=== PATIENT | female | born 1935 | race Caucasian/White ===

== ENCOUNTER 2022-08-15 09:35 | Outpatient (CLI) | payer MEDICARE, BC | END 2022-08-15 09:36 | disposition home or self-care (01) | LOC: CSHMRI 09:35 | PROVIDERS: ATTEND Surgery | DX: M47.26 Other spondylosis with radiculopathy, lumbar region (principal); M47.815 Spondylosis without myelopathy or radiculopathy, thoracolumbar region; M47.817 Spondylosis without myelopathy or radiculopathy, lumbosacral region | CPT/HCPCS: 72100; 72120; 72148 ==